=== PATIENT | male | born 1955 | race Caucasian/White ===

== ENCOUNTER 2024-05-09 10:56 | Outpatient (OUT) | payer MEDICARE, SELFPAY ==
[2024-05-09 12:17] LABS: Alanine Aminotransferase 28 U/L (16-63); Albumin Globulin Ratio 1.1; Albumin Level 3.4 g/dL (3.4-5.0); Alkaline Phosphatase 72 U/L (46-116); Anion Gap 11.8; Aspartate Amino Transferase 24 U/L (15-37); Bilirubin Total 1.3 mg/dL (0.2-1.0); Calcium 8.7 mg/dL (8.5-10.1); Carbon Dioxide 27.3 mmol/L (21.0-32.0); Chloride 105 mmol/L (98-107); Chol HDL Ratio 1.8; Cholesterol 133 mg/dL (<=200); Estimated GFR (African America >60 (>=60); Estimated GFR (Non-African Ame >60 (>=60); Glucose 124 mg/dL (74-106); HDL Cholesterol 75 mg/dL (40-60); Potassium 4.1 mmol/L (3.5-5.1); Sodium 140 mmol/L (136-145); Total Protein 6.4 g/dL (6.4-8.2); Triglycerides 48 mg/dL (<=150); VLDL CHOLESTEROL 9.6 mg/dL
== END 2024-05-09 10:57 | disposition home or self-care (01) ==
LOC: LAB 10:56
PROVIDERS: PCP Family Medicine; Visit Provider Internal Medicine Interventional Cardiology
DX: I25.10 Atherosclerotic heart disease of native coronary artery without angina pectoris (principal); I10 Essential (primary) hypertension; E78.5 Hyperlipidemia, unspecified
CPT/HCPCS: 36415; 80053; 80061